=== PATIENT | female | born 1950 | race Two or more races ===

== ENCOUNTER 2023-10-22 07:32 | Inpatient (IN) | payer OTHER, MEDICAID ==
[~2023-10-22] VITALS: Ht 152.4 cm; Wt 75.3 kg
[~2023-10-22 07:32] MED LIST: ATOR10TA52 PO; BENA40TA70 PO; CARV6.25 PO; CELE100C82 PO; GABA-1250 PO; HYDR25TA4 PO; IBUP-1454 PO; METF-370 PO; OMEP20CA74 PO; OXYB15TA12 PO; TRAZ-227 PO
[2023-10-22 08:11] LABS: Basophils # (auto) 0 10 ^3/uL (0-0.2); Basophils % (auto) 0.4 % (0.0-2.0); Eosinophils # (auto) 0.2 10 ^3/uL (0-0.8); Eosinophils % (auto) 1.9 % (0.0-7.0); Hematocrit 41.9 % (36.0-46.0); Lymphocytes # (auto) 2.7 10 ^3/uL (0.4-5.4); Lymphocytes % (auto) 32.1 % (10.0-50.0); Mean Corpuscular Hemoglobin 28.8 pg (28.0-32.0); Mean Corpuscular Hgb Conc. 33.3 g/dL (32.0-36.0); Mean Corpuscular Volume 86.4 fL (80.0-100.0); Monocytes # (auto) 0.5 10 ^3/uL (0-1.3); Monocytes % (auto) 5.6 % (0.0-12.0); Nucleated Red Blood Cells % 0.1 %; Red Blood Cells 4.85 10^6/uL (4.0-5.20); Red Cell Distribution Width 13.8 % (11.8-14.3); White Blood Cell 8.4 10^3/uL (4.4-10.8)
[2023-10-22 08:28] LABS: Alanine Aminotransferase 16 U/L (7-40); Albumin 4.6 g/dL (3.2-4.8); Alkaline Phosphatase 101 U/L (46-116); Anion Gap 6 (5-15); Aspartate Aminotransferase 17 U/L (13-40); Bilirubin, Total 1.1 mg/dL (0.2-1.0); Blood Urea Nitrogen 10 mg/dL (9-23); Calcium 9.4 mg/dL (8.5-10.1); Carbon Dioxide 24 mmol/L (20-30); Chloride 110 mmol/L (98-107); Glucose 127 mg/dL (74-106); Potassium 3.9 mmol/L (3.5-5.1); Sodium 140 mmol/L (136-145); Total Protein 7.8 g/dL (5.7-8.2)
[2023-10-22 08:58] LABS: Lipase 51 U/L (12-53)
[2023-10-22] MEDS: SODIUM CHLORIDE 0.9% 500 ML IVB ONE (09:15)
[2023-10-22] MEDS: ONDANSETRON HCL 4 MG/2 ML VIAL IV ONE (09:15)
[2023-10-22] MEDS: PANTOPRAZOLE 40 MG/10 ML VIAL INJ IV ONE (09:16)
[2023-10-22] MEDS: MORPHINE SULFATE 4 MG/ML SYR/VIAL IV ONE (09:17)
[2023-10-22 09:37] VITALS: PULSE 81; RESP 18; O2SAT 98
[2023-10-22 10:15] LABS: Urine Bacteria NONE SEEN /hpf (None Seen); Urine Blood Negative /uL (Negative); Urine Clarity Clear (Clear); Urine Color Colorless (Yellow); Urine Protein, UAD Negative (Negative); Urine Specific Gravity 1.012 (1.001-1.035); Urine Urobilinogen Normal (Negative); Urine WBC <1 /hpf (0 - 5); Urine pH 5.5 (5.0-8.0)
[2023-10-22] MEDS ORDERED: ONDANSETRON HCL 4 MG/2 ML VIAL IV PRN (12:30)
[2023-10-22] MEDS ORDERED: MORPHINE SULFATE INJ 2 MG/ml SYRG IV PRN (12:30)
[2023-10-22] MEDS ORDERED: ACETAMINOPHEN 325 MG TAB PO PRN (12:30)
[2023-10-22] MEDS ORDERED: DOCUSATE SOD 100 MG CAP PO PRN (12:30)
[2023-10-22] MEDS ORDERED: EMPA1TAB3 PO (18:08)
[2023-10-22] MEDS ORDERED: ATOR20TA50 PO ×2 (18:08→22:16)
[2023-10-22] MEDS ORDERED: ATEN25TA PO (18:08)
[2023-10-22] MEDS: HYDROcodone-ACET 5/325MG TAB PO PRN (20:32)
[2023-10-22] MEDS: SODIUM CHLORIDE 0.9% 1,000 ML IV SCH (20:33)
[2023-10-22 22:12] VITALS: BP 138/70; PULSE 68; RESP 18; TEMP 98.2; O2SAT 94
[2023-10-22] MEDS ORDERED: IBUP1TAB5 PO (22:15)
[2023-10-22] MEDS ORDERED: CARV6.2551 PO (22:18)
[2023-10-22] MEDS ORDERED: AML5T PO (22:18)
[2023-10-22] MEDS: ATORVASTATIN 20 MG TAB PO SCH (22:33)
[2023-10-22] MEDS: CARVEDILOL 3.125 MG TAB PO SCH (22:34)
[2023-10-22] MEDS: ATENOLOL 25 MG TAB PO SCH (23:16)
[2023-10-23 05:00] VITALS: BP 140/64; PULSE 65; RESP 18; TEMP 97.9; O2SAT 94
[2023-10-23 05:51] LABS: Basophils # (auto) 0 10 ^3/uL (0-0.2); Basophils % (auto) 0.3 % (0.0-2.0); Eosinophils # (auto) 0.1 10 ^3/uL (0-0.8); Eosinophils % (auto) 1.7 % (0.0-7.0); Hematocrit 38.5 % (36.0-46.0); Hemoglobin 12.8 g/dL (12.2-16.2); Lymphocytes # (auto) 2.9 10 ^3/uL (0.4-5.4); Lymphocytes % (auto) 34.2 % (10.0-50.0); Mean Corpuscular Hemoglobin 28.8 pg (28.0-32.0); Mean Corpuscular Hgb Conc. 33.3 g/dL (32.0-36.0); Mean Corpuscular Volume 86.6 fL (80.0-100.0); Monocytes # (auto) 0.6 10 ^3/uL (0-1.3); Neutrophils # (auto) 4.8 10 ^3/uL (1.6-8.6); Neutrophils % (auto) 56.8 % (37.0-80.0); Red Blood Cells 4.44 10^6/uL (4.0-5.20); Red Cell Distribution Width 13.7 % (11.8-14.3); White Blood Cell 8.4 10^3/uL (4.4-10.8)
[2023-10-23 06:07] LABS: Alanine Aminotransferase 15 U/L (7-40); Alkaline Phosphatase 76 U/L (46-116); Anion Gap 5 (5-15); BUN/Creatinine Ratio 10.1 (10.0-20.0); Blood Urea Nitrogen 9 mg/dL (9-23); Calcium 8.8 mg/dL (8.5-10.1); Carbon Dioxide 26 mmol/L (20-30); Chloride 110 mmol/L (98-107); Glucose 94 mg/dL (74-106); Potassium 3.9 mmol/L (3.5-5.1); Sodium 141 mmol/L (136-145)
[2023-10-23 06:08] LABS: Albumin 3.9 g/dL (3.2-4.8); Aspartate Aminotransferase 16 U/L (13-40); Bilirubin, Total 1.4 mg/dL (0.2-1.0); Total Protein 6.4 g/dL (5.7-8.2)
[2023-10-23 06:14] LABS: Partial Thromboplastin Time 27.6 SEC (24.5-34.5); Prothrombin Time 10.5 sec (9.3-11.8)
[2023-10-23 09:00] VITALS: BP 149/64; PULSE 69; RESP 17; TEMP 98.3; O2SAT 92
[2023-10-23] MEDS: EMPAGLIFLOZIN 10 MG TAB PO SCH (09:13)
[2023-10-23] MEDS: OMEPRAZOLE 40MG/20ML ORAL SUSP PO SCH (10:00)
[2023-10-23] MEDS: SOD CHL 0.45% WITH 20MEQ KCL 1,000 ML IV SCH (12:15)
[2023-10-23 13:00] VITALS: BP 141/68; PULSE 66; RESP 16; TEMP 98.3; O2SAT 95
[2023-10-23] MEDS ORDERED: DEXTROSE (50%) 50ML SYRG IV PRN (13:15)
[2023-10-23] MEDS ORDERED: OMEPRAZOLE-SOD BICARB 20 MG POWDER PO SCH (13:32)
[2023-10-23] MEDS: PRILOSEC 20 MG PO SCH (14:00)
[2023-10-23 17:00] VITALS: BP 150/62; PULSE 70; RESP 17; TEMP 98.5; O2SAT 93
[2023-10-23] MEDS: InsuLIN REG 1unit/0.01ml Soln (100units/ml) SC SCH (17:33)
[2023-10-23] MEDS: ACCU-CHEK COMFORT CURVE STRIP VI SCH (17:33)
[2023-10-23] MEDS: traZODone HCL 50 MG TAB PO ONE (20:57)
[2023-10-23 22:00] VITALS: BP 125/55; PULSE 71; RESP 17; TEMP 98.5; O2SAT 92
[2023-10-24 05:00] VITALS: BP 137/59; PULSE 68; RESP 18; TEMP 98.4; O2SAT 97
[2023-10-24 09:00] VITALS: BP 146/68; PULSE 71; RESP 17; TEMP 98.1; O2SAT 94
[2023-10-24] MEDS ORDERED: ONDANSETRON HCL 4 MG/2 ML VIAL ONE (11:10)
[2023-10-24] MEDS ORDERED: NEOSTIGMINE 1 MG/ML INJ (10mg/10ML VIAL) ONE (11:10)
[2023-10-24] MEDS ORDERED: DexAMETHasone SOD PHOS 10MG/1ML VIAL INJ ONE (11:10)
[2023-10-24] MEDS ORDERED: ROCURONIUM 10MG/ML 10ML VIAL IV ONE (11:10)
[2023-10-24] MEDS ORDERED: MEPERIDINE HCL (50 MG/ML) 1 ML VIAL ONE (11:10)
[2023-10-24] MEDS ORDERED: fentaNYL CITRATE 100 MCG/2 ML VL ONE (11:10)
[2023-10-24] MEDS ORDERED: MIDAZOLAM HCL 2MG/2ML 2ml VIAL (1mg/ml) ONE (11:10)
[2023-10-24] MEDS ORDERED: PROPOFOL 10 MG/ML 20 ML IV ONE (11:10)
[2023-10-24] MEDS ORDERED: GLYCOPYRROLATE 0.2 MG/ML 1ML VIAL ONE (11:10)
[2023-10-24] MEDS ORDERED: SODIUM CHLORIDE LOCK 10 ML ONE (11:10)
[2023-10-24] MEDS: ceFAZolin 2 GM/D5W50ml 50 ML IV ONE (11:31)
[2023-10-24] MEDS ORDERED: MORPHINE SULFATE INJ 2 MG/ml SYRG IV PRN (12:15)
[2023-10-24] MEDS ORDERED: METOCLOPRAMIDE HCL 5MG/ml INJ 2ml VIAL IV PRN (12:15)
[2023-10-24] MEDS ORDERED: HYDROmorphone HCL 2 MG/ML VL/or syr IV PRN ×2 (12:15)
[2023-10-24] MEDS: ACCU-CHEK COMFORT CURVE STRIP VI ONE (12:15)
[2023-10-24] MEDS ORDERED: KETAMINE 50mg/ML 1ml syringe ONE (12:50)
[2023-10-24 13:44] VITALS: O2SAT 96
[2023-10-24] MEDS ORDERED: ceFAZolin 1GM/50ML 50 ML IV SCH (14:00)
[2023-10-24] MEDS: metroNIDAZOLE 500MG/100ML 100 ML IV SCH (15:26)
[2023-10-24] MEDS ORDERED: SUCCINYLCHOLINE CHLORIDE 20 MG/ML 10ML VIAL IV ONE (16:43)
[2023-10-24 17:00] VITALS: BP 141/61; PULSE 71; RESP 18; TEMP 97.8; O2SAT 95
[2023-10-24 20:00] VITALS: PULSE 90; RESP 20; O2SAT 94
[2023-10-24] MEDS: ceFAZolin 1GM/50ML 50 ML IV SCH (20:03)
[2023-10-24 21:59] VITALS: BP 134/76; PULSE 90; RESP 20; TEMP 98.1; O2SAT 94
[2023-10-25 05:00] VITALS: BP 136/70; PULSE 85; RESP 16; TEMP 98.4; O2SAT 96
[2023-10-25 06:11] LABS: Basophils # (auto) 0 10 ^3/uL (0-0.2); Basophils % (auto) 0.1 % (0.0-2.0); Eosinophils # (auto) 0 10 ^3/uL (0-0.8); Hematocrit 40.1 % (36.0-46.0); Hemoglobin 13.1 g/dL (12.2-16.2); Lymphocytes # (auto) 1.3 10 ^3/uL (0.4-5.4); Lymphocytes % (auto) 10.2 % (10.0-50.0); Mean Corpuscular Hemoglobin 28.5 pg (28.0-32.0); Mean Corpuscular Hgb Conc. 32.7 g/dL (32.0-36.0); Monocytes # (auto) 0.4 10 ^3/uL (0-1.3); Monocytes % (auto) 2.9 % (0.0-12.0); Neutrophils # (auto) 11.1 10 ^3/uL (1.6-8.6); Neutrophils % (auto) 86.8 % (37.0-80.0); Red Blood Cells 4.61 10^6/uL (4.0-5.20); Red Cell Distribution Width 13.8 % (11.8-14.3); White Blood Cell 12.7 10^3/uL (4.4-10.8)
[2023-10-25 06:30] LABS: Alanine Aminotransferase 31 U/L (7-40); Alkaline Phosphatase 80 U/L (46-116); Anion Gap 10 (5-15); Aspartate Aminotransferase 40 U/L (13-40); BUN/Creatinine Ratio 10.6 (10.0-20.0); Blood Urea Nitrogen 10 mg/dL (9-23); Calcium 8.9 mg/dL (8.5-10.1); Carbon Dioxide 21 mmol/L (20-30); Chloride 107 mmol/L (98-107); Glucose 110 mg/dL (74-106); Potassium 4.1 mmol/L (3.5-5.1); Sodium 138 mmol/L (136-145)
[2023-10-25 06:31] LABS: Bilirubin, Total 1.3 mg/dL (0.2-1.0); Total Protein 7.3 g/dL (5.7-8.2)
[2023-10-25 09:00] VITALS: BP 124/59; PULSE 60; RESP 16; TEMP 98.3; O2SAT 96
[2023-10-25 13:00] VITALS: BP 124/59; PULSE 60; RESP 16; TEMP 98.3; O2SAT 96
[2023-10-25] MEDS ORDERED: AMOX500T86 PO (13:03)
[2023-10-25] MEDS ORDERED: ACET300T58 PO (13:03)
[2023-10-25] MEDS ORDERED: DOCU-94 PO (13:03)
== END 2023-10-25 15:15 | disposition home or self-care (01) | DRG 419 ==
LOC: ER 07:32 → OVERFLOW 12:47 → EAST 12:47
PROVIDERS: ADMIT Nurse Practitioner Family; ATTEND Nurse Practitioner Acute Care
PROC: 0FT44ZZ Resection of Gallbladder, Percutaneous Endoscopic Approach (ICD-10-PCS; principal; 2023-10-24 12:37)
DX: K80.10 Calculus of gallbladder with chronic cholecystitis without obstruction (principal); E11.9 Type 2 diabetes mellitus without complications; E66.9 Obesity, unspecified; E78.5 Hyperlipidemia, unspecified; I10 Essential (primary) hypertension; Z68.32 Body mass index [BMI] 32.0-32.9, adult; K76.0 Fatty (change of) liver, not elsewhere classified; R82.4 Acetonuria; Z82.3 Family history of stroke; Z82.49 Family history of ischemic heart disease and other diseases of the circulatory system; Z86.73 Personal history of transient ischemic attack (TIA), and cerebral infarction without residual deficits
CPT/HCPCS: 36415; 71045; 76705; 80053; 81001; 82962; 83036; 83690; 85025; 85610; 85730; 86850; 86900; 86901; 93005; 96374; 96375; C9113; G0378; J0330; J1100; J1815; J2250; J2405; J2704; J3490